=== PATIENT | female | born 1960 | race Two or more races ===

== ENCOUNTER 2018-05-01 19:51 | Inpatient (IN) | payer BC ==
[~2018-05-01] VITALS: Ht 172.7 cm; Wt 70.3 kg
[2018-05-01] MEDS ORDERED: HYDROMORPHONE 1 MG/1 ML DISP.SYRIN IV ONE ×2 (20:30→21:45)
[2018-05-01] MEDS ORDERED: ONDANSETRON IV *ER 4 MG/2 ML VIAL IV ONE (20:30)
[2018-05-01] MEDS ORDERED: HYDROMORPHONE 2 MG/1 ML DISP.SYRIN ONE ×2 (20:38→21:47)
[2018-05-01] MEDS ORDERED: ONDANSETRON 4 MG/2 ML VIAL ONE (20:38)
[2018-05-01 20:47] LABS: BASOPHILS # (AUTO) 0.1 K/uL (0.0-8.0); BASOPHILS % (AUTO) 1.1 % (0.0-2.0); EOSINOPHILS # (AUTO) 0.2 K/uL (0.0-0.7); EOSINOPHILS % (AUTO) 3.9 % (0.0-7.0); HEMATOCRIT 39.8 % (31.2-41.9); HEMOGLOBIN 13.5 g/dL (10.9-14.3); LYMPHOCYTES # (AUTO) 2.1 K/uL (20.0-40.0); LYMPHOCYTES % (AUTO) 33.7 % (20.5-51.5); MEAN CORPUSCULAR HGB CONC 34 g/dL (32.3-35.6); MONOCYTES # (AUTO) 0.5 K/uL (2.0-10.0); MONOCYTES % (AUTO) 7.8 % (0.0-11.0); NEUTROPHILS # (AUTO) 3.4 K/uL (1.8-8.9); NEUTROPHILS % (AUTO) 53.5 % (38.5-71.5); PLATELET COUNT (AUTO) 270 K/uL (179-408); RED BLOOD CELL COUNT(AUTO) 4.37 MIL/uL (3.63-4.92); WHITE BLOOD COUNT (AUTO) 6.3 K/uL (3.8-11.8)
[2018-05-01 21:03] LABS: CREATININE 0.8 mg/dL (0.6-1.3); POTASSIUM 3.6 mmol/L (3.5-5.1)
[2018-05-01 21:08] LABS: BILIRUBIN,DIRECT 0.1 mg/dL (0.0-0.2); BILIRUBIN,TOTAL 0.2 mg/dL (0.2-1.0); TOTAL PROTEIN, SERUM 6.5 g/dL (6.4-8.2)
[2018-05-01] MEDS ORDERED: DICYCLOMINE HCL 10 MG/5 ML UDC LIQ ONE (21:24)
[2018-05-01] MEDS ORDERED: LIDOCAINE VISCUS 2% 15 ML UDC ONE (21:24)
[2018-05-01] MEDS ORDERED: MAG HYDROX/AL HYDROX/SIMETH 30 ML LIQUID UDC ONE (21:24)
[2018-05-01] MEDS ORDERED: MAG HYDROX/AL HYDROX/SIMETH 30 ML LIQUID UDC PO ONE (21:30)
[2018-05-01] MEDS ORDERED: LIDOCAINE VISCUS 2% 15 ML UDC MM ONE (21:30)
[2018-05-01] MEDS ORDERED: DICYCLOMINE HCL 10 MG/5 ML UDC LIQ PO ONE (21:30)
[2018-05-01] MEDS ORDERED: PANTOPRAZOLE SODIUM 40 MG TABLET.DR PO ONE ×2 (21:45→21:52)
[2018-05-01 23:00] VITALS: BP 148/88
[2018-05-01] MEDS ORDERED: diphenhydrAMINE 50 MG/1 ML VIAL IV PRN (23:15)
[2018-05-01] MEDS ORDERED: Z GUARD REMEDY PASTE 57 GM TUBE TOP PRN (23:15)
[2018-05-01] MEDS ORDERED: ONDANSETRON 4 MG/2 ML VIAL IV PRN (23:15)
[2018-05-01] MEDS ORDERED: ZOLPIDEM 5 MG TABLET PO PRN (23:15)
[2018-05-01] MEDS ORDERED: MAGNESIUM HYDROXIDE 30 ML LIQUID UDC PO PRN (23:15)
[2018-05-02] MEDS: IV NS 1000 ML 1,000 ML IV PRN ×2 (00:45→14:32)
[2018-05-02 05:00] VITALS: BP 97/67
[2018-05-02] MEDS: HYDROCODONE/APAP 5-325MG TABLET PO PRN ×2 (06:08→13:55)
[2018-05-02 06:49] LABS: CREATININE 0.9 mg/dL (0.6-1.3); MAGNESIUM 2.3 mg/dL (1.8-2.4); PHOSPHOROUS 4.5 mg/dL (2.5-4.9); POTASSIUM 3.8 mmol/L (3.5-5.1)
[2018-05-02 06:53] LABS: BASOPHILS # (AUTO) 0.1 K/uL (0.0-8.0); BASOPHILS % (AUTO) 1.1 % (0.0-2.0); EOSINOPHILS # (AUTO) 0.2 K/uL (0.0-0.7); EOSINOPHILS % (AUTO) 3.8 % (0.0-7.0); HEMATOCRIT 40.5 % (31.2-41.9); HEMOGLOBIN 13.6 g/dL (10.9-14.3); LYMPHOCYTES # (AUTO) 1.9 K/uL (20.0-40.0); LYMPHOCYTES % (AUTO) 34.6 % (20.5-51.5); MEAN CORPUSCULAR HEMOGLOBIN 30.6 uug (24.7-32.8); MEAN CORPUSCULAR HGB CONC 34 g/dL (32.3-35.6); MEAN CORPUSCULAR VOLUME 91.4 fL (75.5-95.3); MONOCYTES # (AUTO) 0.4 K/uL (2.0-10.0); MONOCYTES % (AUTO) 7.6 % (0.0-11.0); NEUTROPHILS # (AUTO) 2.8 K/uL (1.8-8.9); NEUTROPHILS % (AUTO) 52.9 % (38.5-71.5); PLATELET COUNT (AUTO) 250 K/uL (179-408); RED BLOOD CELL COUNT(AUTO) 4.43 MIL/uL (3.63-4.92); WHITE BLOOD COUNT (AUTO) 5.4 K/uL (3.8-11.8)
[2018-05-02 06:58] LABS: THYROID STIMULATING HORMONE 4.342 mIU/mL (0.358-3.740)
[2018-05-02] MEDS ORDERED: PANTOPRAZOLE SODIUM 40 MG TABLET.DR PO SCH (07:00)
[2018-05-02] MEDS: ACETAMINOPHEN 325 MG TABLET PO PRN (08:16)
[2018-05-02] MEDS ORDERED: FLEET ENEMA 133 ML BOTTLE RC PRN (10:45)
[2018-05-02] MEDS ORDERED: BISACODYL 10 MG SUPP.RECT RC ONE (10:45)
[2018-05-02 12:12] VITALS: BP 140/84
[2018-05-02 13:57] LABS: *OCCULT BLOOD STOOL NEGATIVE (NEGATIVE)
[2018-05-02 16:00] VITALS: BP 89/42
[2018-05-02 20:00] VITALS: BP 103/61
[2018-05-02] MEDS ORDERED: DOCUSATE SODIUM 100 MG CAPSULE PO SCH (21:00)
[2018-05-02] MEDS ORDERED: ATORVASTATIN 20 MG TABLET PO SCH (21:00)
[2018-05-03] MEDS: HYDROCODONE/APAP 5-325MG TABLET PO PRN (03:33)
[2018-05-03 05:22] VITALS: BP 106/65
[2018-05-03] MEDS: ACETAMINOPHEN 325 MG TABLET PO PRN (06:29)
[2018-05-03] MEDS: IV NS 1000 ML 1,000 ML IV PRN (06:35)
[2018-05-03] MEDS ORDERED: PANTOPRAZOLE SODIUM 40 MG VIAL IV SCH (09:00)
[2018-05-03 11:10] VITALS: BP 115/68
[2018-05-03] MEDS ORDERED: SIMETHICONE 40 MG/0.6 ML 30 ML BOTTLE MC ONE (12:20)
[2018-05-03 15:55] VITALS: BP 114/71
[2018-05-03] MEDS ORDERED: diphenhydrAMINE 50 MG/1 ML VIAL IV PRN (16:00)
[2018-05-03] MEDS ORDERED: IV NORMAL SALINE 100 ML ONE (16:22)
[2018-05-03] MEDS ORDERED: SWABABLE VALVE TRANSFER SET EA MC ONE (16:22)
[2018-05-03] MEDS ORDERED: IOHEXOL 300MG/ML 100 ML INFUS..BTL ONE (16:22)
[2018-05-03] MEDS ORDERED: NORMAL SALINE FLUSH 10 ML DISP.SYRIN ONE (16:22)
[2018-05-03] MEDS ORDERED: PANT40TA2 PO (16:54)
[2018-05-03] MEDS ORDERED: ATOR20TA PO (16:54)
[2018-05-03 20:01] VITALS: BP 136/77
[2018-05-03] MEDS ORDERED: IV NORMAL SALINE 1000 ML BAG IV ONE (20:14)
[2018-05-03] MEDS ORDERED: LIDOCAINE-MPF 2% 5 ML VIAL MC ONE (20:14)
[2018-05-03] MEDS ORDERED: PROPOFOL 200 MG/20 ML BOTTLE IV ONE (20:14)
[2018-05-04 08:10] LABS: HEPATITIS A AB, IgM Negative (Negative); HEPATITIS A AB, TOTAL Positive (Negative); HEPATITIS B SURFACE AB Non Reactive (.); HEPATITIS B SURFACE AG Negative (Negative)
[2018-05-06 02:07] LABS: HEPATITIS Be ANTIGEN Negative (Negative)
== END 2018-05-03 20:15 | disposition home or self-care (01) | DRG 392 ==
LOC: ER 19:52 → TELE 22:23 → MED 05-02 11:50
PROVIDERS: ADMIT Hospitalist; ATTEND Hospitalist
PROC: 0DB68ZX Excision of Stomach, Via Natural or Artificial Opening Endoscopic, Diagnostic (ICD-10-PCS; principal; 2018-05-01)
DX: K29.70 Gastritis, unspecified, without bleeding (principal); I10 Essential (primary) hypertension; E78.5 Hyperlipidemia, unspecified; E83.51 Hypocalcemia; Z87.891 Personal history of nicotine dependence; F41.9 Anxiety disorder, unspecified; Z83.79 Family history of other diseases of the digestive system; R16.0 Hepatomegaly, not elsewhere classified; K59.00 Constipation, unspecified; D18.09 Hemangioma of other sites
CPT/HCPCS: 36415; 70030-TC; 74150; 83690; 83735; 84100; 84443; 84703; 85025; 86704; 86705; 86706; 86708; 86709; 86803; 87340; 87350; 93005; A4217; A4663; C9113; J1170; J1200; J2405; J3490; J7030; Q9967